=== PATIENT | female | born 1970 | race Caucasian/White ===

== ENCOUNTER → 2018-04-23 14:49 | Outpatient (CLI) | payer OTHER, SELFPAY ==
[2018-04-26 12:15] LABS: HPV Reflexed? NOT INDICATED
== END ==
PROVIDERS: Visit Provider Obstetrics & Gynecology
DX: R87.610 Atypical squamous cells of undetermined significance on cytologic smear of cervix (ASC-US) (principal)
CPT/HCPCS: 88175; G0145

== ENCOUNTER → 2019-09-29 09:02 | Outpatient (CLI) | payer OTHER, SELFPAY ==
[2019-09-29 12:48] LABS: Cholesterol 157 mg/dL (200); High Density Lipoprotein 47 mg/dL; Triglycerides 119 mg/dL; Very Low Density Lipoprotein 24 mg/dL (5-40)
== END ==
PROVIDERS: Visit Provider Obstetrics & Gynecology
DX: Z13.1 Encounter for screening for diabetes mellitus (principal); Z13.220 Encounter for screening for lipoid disorders
CPT/HCPCS: 36415; 80061; 83036

== ENCOUNTER → 2022-03-28 | Outpatient (CLI) | payer OTHER, SELFPAY ==
[2022-04-04 18:20] LABS: HPV APTIMA, High Risk Negative (Negative)
== END | disposition home or self-care (01) ==
PROVIDERS: Visit Provider Registered Nurse
DX: Z12.4 Encounter for screening for malignant neoplasm of cervix (principal)
CPT/HCPCS: 87624; 88175; G0145

== ENCOUNTER → 2022-05-22 | Outpatient (CLI) | payer OTHER, SELFPAY ==
--- NOTE | 2022-05-22 15:32 | BI_ITS ---
MAMMOGRAPHY - BILATERAL SCREENING REASON FOR EXAM: Female, 51 years old. Routine annual screening examination. PERTINENT HISTORY: Non-contributory. TECHNIQUE: Digital bilateral breast martita (3D mammographic acquisition) in the CC and MLO projections. 2-D mediolateral oblique (MLO) and craniocaudad (CC) views of both breasts were obtained. CAD: Full Field Digital Mammography with Computer Added Detection was performed. COMPARISON: Comparison is made with prior outside examination dated March 01, 2021. FINDINGS: Breast Composition: The breasts are extremely dense, which lowers the sensitivity of mammography. There are no dominant masses or suspicious calcifications. Stable scattered bilateral calcifications. No focal cluster is seen. No other significant abnormalities are identified. There has been no significant change since the prior study. BI/SCRN MAMM (CAD)W/MARTITA BILAT IMPRESSION: Stable bilateral screening mammogram. Yearly follow-up mammogram recommended. (A) ASSESSMENT CATEGORY: BIR ADS Category 2: Benign. A letter regarding these results will be sent to the patient by the facility within 30 days. Approximately 10% of breast cancers are not detected by mammography. A normal mammogram should not delay biopsy of a clinically suspicious abnormality. [id number] Electronically Signed: Rishabh Valero MD at 8:07 EDT ,
== END | disposition home or self-care (01) ==
LOC: OPBI 15:29
PROVIDERS: Visit Provider Registered Nurse
DX: Z12.31 Encounter for screening mammogram for malignant neoplasm of breast (principal)
CPT/HCPCS: 77063; 77067

== ENCOUNTER → 2023-06-18 | Outpatient (CLI) | payer OTHER, SELFPAY ==
--- NOTE | 2023-06-18 16:00 | BI_ITS ---
MAMMOGRAPHY - BILATERAL SCREENING REASON FOR EXAM: Female, 52 years old. Routine annual screening examination. PERTINENT HISTORY: Non-contributory. TECHNIQUE: Digital bilateral breast martita (3D mammographic acquisition) in the CC and MLO projections. 2-D mediolateral oblique (MLO) and craniocaudad (CC) views of both breasts were obtained. CAD: Full Field Digital Mammography with Computer Added Detection was performed. COMPARISON: Comparison is made with prior study dated May 22, 2022. FINDINGS: Breast Composition: The breasts are extremely dense, which lowers the sensitivity of mammography. There are no dominant masses or suspicious calcifications. Stable benign-appearing bilateral scattered calcifications. No other significant abnormalities are identified. There has been no significant change since the prior study. BI/SCRN MAMM (CAD)W/MARTITA BILAT IMPRESSION: Stable bilateral screening mammogram. Yearly follow-up mammogram recommended. (A) ASSESSMENT CATEGORY: BIRADS Category 2: Benign. A letter regarding these results will be sent to the patient by the facility within 30 days. Approximately 10% of breast cancers are not detected by mammography. A normal mammogram should not delay biopsy of a clinically suspicious abnormality. [id number] Electronically Signed: Rishabh Valero MD at 8:33 EDT ,
== END | disposition home or self-care (01) ==
LOC: OPBI 16:00
PROVIDERS: Referring Provider Registered Nurse; Visit Provider Registered Nurse
DX: Z12.31 Encounter for screening mammogram for malignant neoplasm of breast (principal)
CPT/HCPCS: 77063; 77067

== ENCOUNTER → 2024-06-18 | Outpatient (CLI) | payer OTHER, SELFPAY ==
--- NOTE | 2024-06-18 16:15 | BI_ITS ---
EXAM: SCRN MAMM (CAD)W/MARTITA BILAT DATE: 06/18/2024 CLINICAL HISTORY: F, Age 53 y/o , SCREEN FOR BREAST CANCER BREAST CANCER RISK ASSESSMENT: Has not been calculated. TECHNIQUE: Bilateral screening digital breast tomosynthesis with 2D and 3D images. Computer aided detection. COMPARISON: Prior exam(s) dated 06/18/2023 and 05/22/2022. FINDINGS: TISSUE DENSITY: The breast tissue is heterogenously dense, which may obscure small masses. Bilateral Breast Mammographic Findings: There are no suspicious masses, suspicious clustered microcalcifications, architectural distortion or secondary signs of malignancy identified in either breast. There has been no significant change since the prior study. Benign-appearing round microcalcifications are seen in both breasts. BI/SCRN MAMM (CAD)W/MARTITA BILAT IMPRESSION: OVERALL FINAL ASSESSMENT: BIRADS 2 BENIGN FINDING RECOMMENDATION: Routine annual follow-up in 1 Year A letter with findings and recommendations will be mailed to the patient. Reading Location: [id number]
== END | disposition home or self-care (01) ==
LOC: OPBI 16:15
PROVIDERS: Referring Provider Nurse Practitioner Family; Visit Provider Nurse Practitioner Family
DX: Z12.31 Encounter for screening mammogram for malignant neoplasm of breast (principal)
CPT/HCPCS: 77063; 77067

== ENCOUNTER 2024-10-03 08:31 | Day surgery (SDC) | payer OTHER, SELFPAY ==
[2024-10-03] VITALS (7 sets, daily range): BP systolic 99–123; BP diastolic 65–85; PULSE 60–75; RESP 16–18; TEMP 36.1–36.4; O2SAT 98–100; BMI 26.7
--- NOTE | 2024-10-03 08:55 | PRE.ANES_ITS ---
ASA Classification* ASA Classification ASA Classification: 2 Assessment & Plan Anesthesia* Anesthesia Assessment Anesthesia Assessment: Discussed sedation and/or anesthesia options, risks, benefits, and alternatives with patient/parents/legal guardian/POA. Questions invited. The patient/parents/legal guardian/POA seems to understand and agrees to proceed with anesthesia plan. Reviewed the physical assessment, medical history, allergy history and patient home medications list prior to surgery/procedure/anesthetic and documented any changes. Performed airway and anesthesia risk assessments. 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 When Was Last Pacemaker Check QUESTION #4 FULL TEXT: You/Your Family Experience fever (hyperthermia) with Anesthesia Last Oral Intake Last Oral intake: Last Oral Intake NPO since Meds taken in AM with sips of water? Meds patient instructed to take am of surgery PONV PONV - photostat operator helper: PONV - photostat operator helper Female Yes 10/02/24 10:31 HX of Motion Sickness Yes 10/02/24 10:31 HX of N/V After Surgery No 10/02/24 10:31 Non-Smoker Yes 10/02/24 10:31 Duration of Surgery greater No 10/02/24 10:31 than 60 minutes Number of Risk Factors 3 10/02/24 10:31 PONV Score Moderate Risk 10/02/24 10:31 Height & Weight Height & Weight: Anesthesia: Height & Weight Height 5 ft 5 in 06/17/24 14:45 Respiratory Assessment Respiratory Assessment - photostat operator helper: Respiratory Tract Infection Hx - photostat operator helper Hx Respiratory Tract Infection No 10/02/24 10:31 STOP Sleep Apnea STOP Sleep Apnea - photostat operator helper: STOP Sleep Apnea - photostat operator helper Hx Hypertension No 10/02/24 10:31 Hx Sleep Apnea No 10/02/24 10:31 CPAP BIPAP Do you snore loudly (louder No 10/02/24 10:31 than talking or can be heard Do you often feel tired/ No 10/02/24 10:31 fatigued/ sleepy during daytime? Has anyone observed you stop No 10/02/24 10:31 breathing during sleep? STOP Results Negative 10/02/24 10:31 QUESTION #5 FULL TEXT : Do you snore loudly (louder than talking or can be heard through closed doors)? Tobacco Use History Tobacco Use History - photostat operator helper: Tobacco Use History - photostat operator helper Tobacco Use Smoking Status Never smoker 10/02/24 10:31 Hx Tobacco Use No 10/02/24 10:31 Years Smoking Packs Smoked per Day Smoking Cessation Date was within the last 15 years Hx Smoking Cessation Date Hx Smoking Cessation Counseling Hematologic Medial History Hematologic Hx - photostat operator helper: Hematologic Medical Hx - documentation lead Hx of Blood Transfusion No 10/02/24 10:31 Hx of Transfusion in last 3 No 10/02/24 10:31 Months Date of Last Transfusion (if within last 3 months) Ever experience any problems No 10/02/24 10:31 with transfusion(s)? Specify any problems Hx of Preganancy in last 3 No 10/02/24 10:31 Months Nurse Filling Out Transfusion DSCHRIBER 10/02/24 10:31 & Questions: Date: 10/02/24 10/02/24 10:31 Time: 10:32 10/02/24 10:31 Patient unable to answer at this time (ie. confused, unrespo /Reproduction History /Reproductive History - photostat operator helper: /Reproductive Hx- photostat operator helper Hx Now No 10/02/24 10:31 Gestational Age (in weeks): EDC: Hx Hx Para Hx Section SAB No 10/02/24 10:31 Active Medications Active Medications: Current Medications Generic Name Dose Route Start Last Admin Trade Name Freq PRN Reason Stop Dose Admin Lactated Ringer's 1,000 mls @ 15 mls/hr 10/03/24 08:45 IV .Q48H MERRY PFSH Medical History Wears glasses Anxiety Restless legs Migraine headache Non-smoker Home Medications ?Medication ?Instructions ?Recorded ?Last Taken ?Type citalopram 10 mg tablet 10 mg PO DAILY 03/28/2209/19 History Allergy/AdvReac Type Severity Reaction Status Date / Time No Known Allergies Allergy Verified 10/03/24 08:56 Family History Father Diabetes Heart disease Mother Heart disease Grandmother Ovarian cancer Paternal Surgical History Hx of appendectomy History of delivery Social History adopted: No household members: spouse and children number of children: 1 current occupational status: employed current occupation: [employer] current occupational exposures/hazards: No pets and animals: Yes pets and animals: cat(s) and dog(s) history of recent travel: No sexually active: Yes Smoking Status: Never smoker alcohol intake: never substance use type: does not use well-balanced diet: daily or most days caffeine: Yes Type: coffee Number of servings: 2 during the past year weight has: remained stable what type of physical activity do you participate in: walking frequency: daily duration: 45-60 minutes/day simi/zoroastrianism: None seatbelt use: always do you feel safe at home: Yes additional social history: Bhavin Review of Systems (Anesthesia) ROS Narrative System reviewed and no additional complaints, except as documented.
[2024-10-03 09:00] LABS: Internal QC Validated? YES +Cl - CLEAR BKGD; Pregnancy, Urine Negative Negative; Record Kit Lot#,Urine Preg 962302
--- OUTSIDE RECORDS SUMMARY | 2024-10-03 09:00 | XMS RPT_ITS | CCD ---
Author Organization [facility] Care Team Providers Care Floor Specialist Name Role Phone MONIKA MEDINA Primary Care Physician JAN Dozier Attending Provider Brissa Beulah A Primary Care Provider Unavailabl e Carolson, Beulah A Referring Provider Unavailable JAN Dozier Attending Provider [phone] MONIKA MEDINA Attending Unavail able MONIKA MEDINA Primary Care Unavail able Gail Altamirano Attending Unavailable Lorson, Beulah A Referring Unavailable Lorson, Beulah A Primary Care Unavailable Orlando Zimmerman Attending Unavailable Monika Moctezuma NP Primary Care Unavailable Orlando Zimmerman Referring Unavailable Gail Altamirano Referring Unavailable Gail Altamirano Attending Unavailable Brissa Beulah A Primary Care Unavailable Medications Current Medications Medication Drug Class(es) Dates Sig (Normalized) Sig (Original) acetaminophen 325 mg oral capsule (2 sources) Start: 04-26-2020 take 1 capsule by mouth every four hours as needed for pain Tylenol 325 mg oral capsule Dose : 650 mg =, Oral, q4h, PRN as needed for pain, 0 Refill(s) Start Date: 04/26/20 Status: Ordered cephalexin 500 mg oral capsule (1 source) Cephalosporin Antibacterial Start: 06-03-2021 End: 06-10-2021 cephalexin 500 mg oral capsule Dose : 500 mg = 1 cap(s), Oral, QID, X 7 day(s), # 28 cap(s), 0 Refill(s), 06/10/21 13:36:00 EDT, Crush injury to finger, 70 Start Date: 06/03/21 Stop Date: 06/10/21 Status: Ordered citalopram 10 mg oral tablet (4 sources) Serotonin Reuptake Inhibitor Start: 03-28-2022 take 10 mg by mouth once daily Citalopram Active 10 MG PO DAILY March 28, 2022 1:00am Start: 05-27-2020 End: 05-22-2021 citalopram 10 mg oral tablet Dose : 10 mg = 1 tab(s), Oral, qDay, # 90 tab(s), 3 Refill(s), Pharmacy: [id number], 164, cm, 05/27/20 15:25:00 EDT, Height, kg, 05/27/20 15:25:00 EDT, Dosing Weight Start Date: 05/27/20 Stop Date: 05/22/21 Status: Ordered Completed/Discontinued Medications Medication Drug Class(es) Dates Sig (Normalized) Sig (Original) acetaminophen 325 mg / HYDROcodone bitartrate 5 mg oral tablet (2 sources) Opioid Agonist Start: 06-03-2021 End: 06-06-2021 take 1 tablet by mouth every six hours Sublette 325- 5 mg oral tablet Dose = 1 tab(s), Oral, q6h, # 12 tab(s), 0 Refill(s), Crush injury to finger, 70 Start Date: 06/03/21 Stop Date: 06/06/21 Status: Ordered Problems Active Problems Problem Classification Problem Date Documented Da te Episodic/Chronic Anxiety disorders (2 sources) Generalized anxiety disorder 11-07-2018 Chronic Crushing injury or internal injury (1 source) Crushing injury of finger; Translations: [Crushing injury of unspecified finger(s), initial encounter] Onset: 06-03-2021 Episodic Past or Other Problems Problem Classification Problem Date Documented Da te Episodic/Chronic Other screening for suspected conditions (not mental disorders or infectious disease) (1 source) Encounter for screening mammogram for malignant neoplasm of breast; Translations: [Encounter for screening mammogram for malignant neoplasm of breast] Onset: 06-24-2024 Episodic Results Test Name Value Interpretation Reference Range Facility SCRN MAMM (CAD)W/MARTITA lewis 06-18-2024 SCRN MAMM (CAD)W/MARTITA [facility] Services [address] [place] [id number] SCRN MAMM (CAD)W/MARTITA BILAT MR#: [id number] Acct: [id number] Name: MARY FISHMAN Rep #: [id number] : 1970 F 53 From: Kaila Jose PCP: Beulah Moctezuma Status: REG CLI Study: SCRN MAMM (CAD)W/MARTITA BILAT Date of Exam: 05/22 Exam# [id number] Ordering Dr: Gail Altamirano EXAM: SCRN MAMM (CAD)W/MARTITA BILAT DATE: 06/18/2024 CLINICAL HISTORY: F, Age 53 y/o , SCREEN FOR BREAST CANCER BREAST CANCER RISK ASSESSMENT: Has not been calculated. TECHNIQUE: Bilateral screening digital breast tomosynthesis with 2D and 3D images. Computer aided detection. COMPARISON: Prior exam(s) dated 06/18/2023 and 05/22/2022. FINDINGS: TISSUE DENSITY: The breast tissue is heterogenously dense, which may obscure small masses. Bilateral Breast Mammographic Findings: There are no suspicious masses, suspicious clustered microcalcifications, architectural distortion or secondary signs of malignancy identified in either breast. There has been no significant change since the prior study. Benign-appearing round microcalcifications are seen in both breasts. BI/SCRN MAMM (CAD)W/MARTITA BILAT IMPRESSION: OVERALL FINAL ASSESSMENT: BIRADS 2 BENIGN FINDING RECOMMENDATION: Routine annual follow-up in 1 Year A letter with findings and recommendations will be mailed to the patient. Reading Location: [id number] CC: GEO Altamirano; Beulah Moctezuma Eyelet Punch Operator: Signed Normal [facility] School Leader Office Visit Reporton 06-17-2024 School Leader Office Visit Report [facility] [address], [address] [place] [address] OFFICE VISIT Date of Service: 06/17/24 MR#: [id number] Acct: [id number] Name: MARY FISHMAN Rep #: [id number] : 1970 Provider: GEO Parker Age/Sex: 53/F [place] [facility] [place]: Signed Intake Vital Signs 06/06/23 16:19 06/17/24 14:41 06/17/24 14:45 Height 5 ft 5 in 5 ft 5 in 5 ft 5 in Weight: 156 lb BMI 25.9 BP 153/80 H 145/89 H 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: No Is patient in pain?: No Allergies No Known Allergies Allergy (Verified 06/17/24 14:41) Medications ???Medication ???Instructions ???Recorded ???Confirmed ???Type citalopram 10 mg tablet 10 mg PO DAILY 03/28/22 06/17/24 H istory Post menopausal: No Patient : No : No PFSH Surgical History Hx of appendectomy History of delivery Family History Father Diabetes Heart disease Mother Heart disease Grandmother Ovarian cancer Paternal Social History adopted: No household members: spouse and children number of children: 1 current occupational status: employed 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 current occupational exposures/hazards: No pets and animals: Yes pets and animals: cat(s) and dog(s) history of recent travel: No sexually active: Yes Smoking Status: Never smoker alcohol intake: never substance use type: does not use well-balanced diet: daily or most days caffeine: Yes Type: coffee Number of servings: 2 during the past year weight has: remained stable what type of physical activity do you participate in: walking frequency: daily duration: 45-60 minutes/day simi/jehovah's witness: None seatbelt use: always do you feel safe at home: Yes additional social history: Bhavin History 3 Elective abortions Hx Para 2 Spontaneous abortions Hx # Term Pregnancies Ectopic pregnancies Hx # Pregnancies Multiple births # of living children Past Pregnancies Del. 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 She reports no issues or concerns today. Has not had colonoscopy yet. She is still having regular menses. Will skip every now in then. Last PAP: 2022; normal. hpv neg. History of abnormal PAP: ASCUS 2017. Last mammogram: 2023; normal. History of abnormal mammogram: no. Colon cancer screening: None--needs. Other preventative health care screenings: [facility] Moctezuma; PCP. Female Reproductive History Last Menstrual Period: 05/27/24 Cycle Length: 21-35 Questions: metorrhagia: No, sexually active: Yes, dyspareunia: No and PCB: No ROS Const Constitutional: Denies chills, fatigue, fever(s), headache(s) or weight loss Eyes Eyes: Denies change in vision ENT ENT: Denies dizziness Cardio Card: Denies chest pain at rest or palpitations Resp Resp: Denies cough GI GI: Denies abdominal pain, constipation or nausea : Denies difficulty voiding, dysuria, hematuria, nipple discharge, pelvic pain, prolapse symptoms, urinary incontinence, vaginal discharge, vaginal dryness, vaginal odor or vaginal pruritus Skin Skin/Breast: Denies alopecia, rash, breast mass, breast pain, breast skin changes or nipple discharge Neuro Neuro: Denies dizziness Psych Psych: Denies anxiety or depression Endo Endo: Denies cold intolerance, excessive sweating or heat intolerance Exam Const General: cooperative, healthy appearing, comfortable, no acute distress, well groomed and well hydrated Nutritional Appearance: well nourished Orientation: alert, awake and oriented x3 HENMT Head: normal to inspection and normocephalic Ears: hearing grossly normal bilaterally and external ears normal Nose: external nose normal Face and sinus: normal facial exam Eyes General: appearance normal, both eyes and all related structures Neck Neck: normal visual inspection, full ROM and no lymphadenopathy Thyroid: thyroid normal Chest Chest palpation inspection: normal inspection of the chest Breast inspection: normal inspection of the breasts and normal inspection of the axillae Breast palpation: normal palpation of the breasts, normal palpation of the axillae and no axillary lymphadenopathy Resp Effort Inspection: normal respiratory effort, able to speak in complete sentences and symmetric chest m (more content not included)... Normal [facility] .GFRon 10-06-2023 GFR 95 ml/min/1.73sqm Normal [facility] ([place]) Comment on above: Result Comment: GFR Population mean for , Non- Americans Ages 20-29 = 116 mL/min/1.73 sq.m. Ages 30-39 = 107 mL/min/1.73 sq.m. Ages 40-49 = 99 mL/min/1.73 sq.m. Ages 50-59 = 93 mL/min/1.73 sq.m. Ages 60-69 = 85 mL/min/1.73 sq.m. Ages 70+ = 75 mL/min/1.73 sq.m. Chronic Kidney Disease: Less than 60 mL/min/1.73 square meters End Stage Renal Disease: Less than 15 mL/min/1.73 square meters Performed By: #### L IPID, CMP, GFR #### [address] [address] GFR Non- 78 ml/min/1.73sqm Normal [facility] ([place]) Comment on above: Result Comment: GFR Population mean for , Non- Americans Ages 20-29 = 116 mL/min/1.73 sq.m. Ages 30-39 = 107 mL/min/1.73 sq.m. Ages 40-49 = 99 mL/min/1.73 sq.m. Ages 50-59 = 93 mL/min/1.73 sq.m. Ages 60-69 = 85 mL/min/1.73 sq.m. Ages 70+ = 75 mL/min/1.73 sq.m. Chronic Kidney Disease: Less than 60 mL/min/1.73 square meters End Stage Renal Disease: Less than 15 mL/min/1.73 square meters Performed By: #### L IPID, CMP, GFR #### [address] [address] CMPon 10-06-2023 Albumin Level 3.7 G/dL Normal 3.5-5.0 [facility] ([place]) Comment on above: Performed By: #### L IPID, CMP, GFR #### [address] [address] Albumin/Globulin [Mass ratio] 1.1 {ratio} Normal 1.1-2.5 [facility] ([place]) Comment on above: Performed By: #### L IPID, CMP, GFR #### [address] [address] ALP [Catalytic activity/Vol] 59 U/L Normal 40-135 [facility] ([place]) Comment on above: Performed By: #### L IPID, CMP, GFR #### [address] [address] ALT [Catalytic activity/Vol] 24 U/L Normal 14-59 [facility] ([place]) Comment on above: Performed By: #### L IPID, CMP, GFR #### [address] [address] AST [Catalytic activity/Vol] 6 U/L Low 10-40 [facility] ([place]) Comment on above: Performed By: #### L IPID, CMP, GFR #### [address] [address] Bili Total 0.5 mg/dL Normal 0.2-1.0 [facility] ([place]) Comment on above: Result Comment: Use of this assay is not recommended for patients undergoing treatment with eltrombopag due to the potential for falsely elevated results. Performed By: #### L IPID, CMP, GFR #### [address] [address] BUN/Creatinine Ratio 13 ratio Normal 7-27 [facility] ([place]) Comment on above: Performed By: #### L IPID, CMP, GFR #### [address] [address] Calcium [Mass/Vol] 8.8 mg/dL Normal 8.4-10.2 [facility] ([place]) Comment on above: Performed By: #### L IPID, CMP, GFR #### [address] [address] Chloride [Moles/Vol] 106 mmol/L Normal 98-107 [facility] ([place]) Comment on above: Performed By: #### L IPID, CMP, GFR #### [address] [address] CO2 [Moles/Vol] 31 mmol/L High 22-29 [facility] ([place]) Comment on above: Performed By: #### L IPID, CMP, GFR #### [address] [address] Creatinine [Mass/Vol] 0.77 mg/dL Normal 0.55-1.02 [facility] ([place]) Comment on above: Performed By: #### L IPID, CMP, GFR #### [address] [address] Electrolyte Balance 6.0 mEq/L Normal 4.0-15.0 [facility] ([place]) Comment on above: Performed By: #### L IPID, CMP, GFR #### [address] [address] Globulin 3.4 G/dL Normal [facility] ([place]) Comment on above: Performed By: #### L IPID, CMP, GFR #### [address] [address] Glucose [Mass/Vol] 97 mg/dL Normal 70-105 [facility] ([place]) Comment on above: Performed By: #### L IPID, CMP, GFR #### [address] [address] Potassium [Moles/Vol] 4.4 mmol/L Normal 3.5-5.1 [facility] ([place]) Comment on above: Performed By: #### L IPID, CMP, GFR #### [address] [address] Sodium [Moles/Vol] 143 mmol/L Normal 136-145 [facility] ([place]) Comment on above: Performed By: #### L IPID, CMP, GFR #### [address] [address] Total Protein 7.1 G/dL Normal 6.4-8.2 [facility] ([place]) Comment on above: Performed By: #### L IPID, CMP, GFR #### [address] [address] Urea nitrogen [Mass/Vol] 10 mg/dL Normal 7-18 [facility] ([place]) Comment on above: Performed By: #### L IPID, CMP, GFR #### [address] [address] LIPIDon 10-06-2023 Cholesterol [Mass/Vol] 206 mg/dL High 0-200 [facility] ([place]) Comment on above: Result Comment: Chol esterol Reference Interval: Less than 200 Desirable 200-239 Borderline high risk 240 and above High risk Performed By: #### L IPID, CMP, GFR #### [address] [address] Cholesterol in HDL [Mass/Vol] 52 mg/dL Normal 40-60 [facility] ([place]) Comment on above: Performed By: #### L IPID, CMP, GFR #### [address] [address] Cholesterol in LDL [Mass/Vol] 135 mg/dL High 0-130 [facility] ([place]) Comment on above: Performed By: #### L IPID, CMP, GFR #### [address] [address] Triglyceride [Mass/Vol] 95 mg/dL Normal 0-150 [facility] ([place]) Comment on above: Result Comment: Trig lyceride Reference Interval: Less than 150 Normal 150-199 Borderline high risk 200-499 High risk 500 or higher Very high risk Performed By: #### L IPID, CMP, GFR #### [address] [address] Cervical or vagninal specime n microscopic examination by cytology stain (reported asOrdered By: Sinai Dozier on 03-28-2022 Cytology report Cyto stain Doc (Cvx/Vag) Comment . [facility] Comment on above: The Pap smear is a s creening test designed to aid in thedetection of premalignant and malignant conditions of theuterine cervix. It is not a diagnostic procedure andshould not be used as the sole means of detecting cervicalcancer. Both false-positive and false-negative reports dooccur. Detection in cervical specim en of any of human papilloma virus (HPV) 16, 18, 31, 33,Ordered By: Sinai Dozier on 03-28-2022 HPV 16+18+31+33+35+39+45+5 1+52+56+58+59+66+68 DNA Probe+sig amp Ql (Cvx) Negative Negative [facility] Comment on above: This nucleic acid am plification test detects fourteen high- risk HPV types (16,18,31,33,35,39,45,51,52,56,58,59,66,68)without differentiation. Laboratory - CytologyOrdered By: Sinai Dozier on 03-28-2022 Landscaping Specialist Cyto stain Nom (Cvx/Vag) [ID] Comment . [facility] Comment on above: Cheri Jorgensen, Cytote chnologist (ASCP) Laboratory - Miscellaneous t estsOrdered By: Sinai Dozier on 03-28-2022 Service comment (Unsp spec) [Interp] Comment . [facility] Comment on above: This liquid based Th inPrep(R) pap test was screened withthe use of an image guided system. Service comment (Unsp spec) [Interp] . . [facility] Liquid-based cerv Pap + CT/G C by SANDI w reflex to high-risk HPV for ASCUSOrdered By: Sinai Dozier on 03-28-2022 Cytology report Cyto stain.thin prep Doc (Cvx/Vag) Comment . [facility] Comment on above: Criteria not met, HP V Genotype not performed.Performed at: - [address] [id number] Director: Clare Perez MD, Phone: [phone] at: =[facility] [id number] Director: Clare Perez MD, Phone: [phone] No Panel InformationOrdered By: Sinai Dozier on 03-28-2022 Pathology report final diagnosis Narrative Comment . [facility] Comment on above: NEGATIVE FOR INTRAEP ITHELIAL LESION OR MALIGNANCY. CNOVon 08-22-2018 CNOV Office Visit (WSTR ) MARY FISHMAN ([id number]) 1970 F Date Time Provider Department 08/22/18 9:15 AM CHIOMA DONOVAN [facility] During your visit today, we recorded the following information about you: Temperature Pulse Respiration Blood pressure 97.9 degrees 75/minute 16/minute 132/74 Weight 66.2 kg Chioma Donovan APRN.CNP 08/22/2018 9:30 AM Signed ASSESSMENT/PLAN: 1. Low back strain, initial encounter - ICD9: 847.2, ICD10: S39.012A Mechanical low back pain - Warm moist heat for 20 min three times a day - Medrol dose pack - Muscle relaxant- see orders - Patient given instructions use of medications as ordered, intermittent rest and back care exercise program - METHYLPREDNISOLONE 4 MG TABLETS IN A DOSE PACK - CYCLOBENZAPRINE 10 MG TABLET Report immediately to ER for foot drop, bowel or bladder loss, numbness or tingling of legs/feet or any new or worsening concerns if unable to get into PMD Chioma Donovan APRN.CNP 08/22/2018 10:06 AM Signed Subjective The history is provided by the patient. No sewing machine bobbin winder was used. HPI Mary Fsihman is a 47 year old female who presents today for CC of lower back pain, with radiation into right leg. This started over the past week and is not going away. She has been doing a lot of yard/farm work and doesn't remember a specific incidence as to what caused it. She denies any foot drag, difficulty with bowel or bladder function. She has used ibuprofen without relief. BP 132/74 Pulse 75 Temp 36.6 ?C (97.9 ?F) (Tympanic) Resp 16 Wt 66.2 kg (146 lb) SpO2 96% Social History Socioeconomic History Marital status: Spouse name: Not on file Number of children: Not on file Years of education: Not on file Highest education level: Not on file Social Needs Financial resource strain: Not on file Food insecurity - worry: Not on file Food insecurity - inability: Not on file Transportation needs - medical: Not on file Transportation needs - non-medical: Not on file Occupational History Not on file Tobacco Use Smoking status: Never Smoker Smokeless tobacco: Never Used Substance and Sexual Activity Alcohol use: No Drug use: No Sexual activity: Yes Partners: Male control/protection: Vasectomy Other Topics Concerns: Not on file Social History Narrative Not on file PAST MEDICAL HISTORY Diagnosis Date - Depressive disorder, not elsewhere classified I have confirmed and edited as necessary, the [facility] Review of Systems Constitutional: Negative for chills and fever. Musculoskeletal: Positive for back pain. Negative for falls and myalgias. Skin: Negative for rash. All other systems reviewed and are negative. Objective Physical Exam Constitutional: She is oriented to person, place, and time and well-developed, well-nourished, and in no distress. HENT: Head: Normocephalic. Cardiovascular: Pulses: Popliteal pulses are 2+ on the right side, and 2+ on the left side. Dorsalis pedis pulses are 2+ on the right side, and 2+ on the left side. Posterior tibial pulses are 2+ on the right side, and 2+ on the left side. Musculoskeletal: Lumbar back: She exhibits tenderness, pain and spasm. She exhibits normal range of motion, no bony tenderness, no swelling, no edema, no deformity, no laceration and normal pulse. Back: Patient was able to change positions readily without assistance, hesitancy, delay or with overt signs of discomfort. Neurovascular status is intact to bilateral lower extremities. Patellar reflexes are +2 bilaterally. Leg strength 5/5. Pedal pulses are palpable and strong. Normal temp. Normal sensation. Bilateral leg lifts are negative for radiculopathy. Able to ambulate without evidence of a foot drop or ataxic gait. Able to ambulate on toes and heels. Normal flexion, dorsiflexion, abduction and adduction. Denies bowel or bladder dysfunction, saddle anesthesia, distal paresthesias or weakness in the lower extremities. Neurological: She is alert and oriented to person, place, and time. She has normal sensation, normal strength and normal reflexes. Skin: Skin is warm and dry. Psychiatric: Affect normal. Nursing note and vitals reviewed. ASSESSMENT/PLAN: 1. Low back strain, initial encounter - ICD9: 847.2, ICD10: S39.012A Mechanical low back pain - Warm moist heat for 20 min three times a day - Medrol dose pack - Muscle relaxant- see orders - Patient given instructions use of medications as ordered, intermittent rest and back care exercise program - METHYLPREDNISOLONE 4 MG TABLETS IN A DOSE PACK - CYCLOBENZAPRINE 10 MG TABLET Report immediately to ER for foot drop, bowel or bladder loss, numbness or tingling of legs/feet or any new or worsening concerns if unable to get into PMD Diagnosis and treatment plan were discussed and questions were answered to the patient's satisfaction. Pt acknowledged understanding of concepts and follow up plan. Specific signs and symptoms that would indicate the need for higher level of care were discussed in detail warranting prompt ER evaluation. Chioma Donovan APRN.AUTO PARTS HANDLER Referring Provider: SELF [200] Allergies As of Date: 08/22/2018 (No Known Allergies) Date Reviewed: 08/22/2018 Reviewed by: Chioma Donovan - Fully Assessed Reason for Visit: Back Pain [12] Cmt: low back pain going into (right) leg causing muscle spasms x 4 days Primary Visit Diagnosis:Low back strain, initial encounter [S39.012A] Order(s):cyclobenzapri ne (FLEXERIL) 10 mg tabletTake 1/2 to 1 tablets at hs prnDisp: 10 tabletRfl: 0 Prescriptions as of 08/22/2018 Sig: CELEXA ORAL Take by mouth. CYCLOBENZAPRINE 10 MG TABLET Take 1/2 to 1 tablets at hs p* PAXIL CR 12.5 MG TABLET,EXTEN* Problem List As Of Date: 08/22/2018 (None) Other instructions from your clinician: ASSESSMENT/PLAN: 1. Low back strain, initial encounter - ICD9: 847.2, ICD10: S39.012A Mechanical low back pain - Warm moist heat for 20 min three times a day - Medrol dose pack - Muscle relaxant- see orders - Patient given instructions use of medications as ordered, intermittent rest and back care exercise program - METHYLPREDNISOLONE 4 MG TABLETS IN A DOSE PACK - CYCLOBENZAPRINE 10 MG TABLET Report immediately to ER for foot drop, bowel or bladder loss, numbness or tingling of legs/feet or any new or worsening concerns if unable to get into PMD Prescriptions ordered this encounter Disp Refills Start End METHYLPREDNISOLONE 4 MG TABLETS IN A* 1 Pa* 0 08/22/2018 08/22/2018 Sig: Follow dosing instructions, take with food. Disc: Course of therapy completed CYCLOBENZAPRINE 10 MG TABLET 10 t* 0 08/22/2018 Sig: Take 1/2 to 1 tablets at hs prn Medications Discontinued During This Encounter methylPREDNISolone (MEDROL, EARLENE,) 4 * 1 Pa* 0 08/22/2018 08/22/2018 Sig: Follow dosing instructions, take with food. Disc: Course of therapy completed Encounter Status:Closed by CHIOMA DONOVAN CNP on 08/22/18 [facility] PROGRESSon 08-22-2018 PROGRESS HNO ID: [id number] Author: Chioma Donovan Service: ? Author Type: Nurse Practitioner Type: Progress Notes Filed: 08/22/2018 10:06 AM Note Text: Subjective The history is provided by the patient. No sewing machine bobbin winder was used. HPI Mary Fishman is a 47 year old female who presents today for CC of lower back pain, with radiation into right leg. This started over the past week and is not going away. She has been doing a lot of yard/farm work and doesn't remember a specific incidence as to what caused it. She denies any foot drag, difficulty with bowel or bladder function. She has used ibuprofen without relief. BP 132/74 Pulse 75 Temp 36.6 ?C (97.9 ?F) (Tympanic) Resp 16 Wt 66.2 kg (146 lb) SpO2 96% Social History Socioeconomic History Marital status: Spouse name: Not on file Number of children: Not on file Years of education: Not on file Highest education level: Not on file Social Needs Financial resource strain: Not on file Food insecurity - worry: Not on file Food insecurity - inability: Not on file Transportation needs - medical: Not on file Transportation needs - non-medical: Not on file Occupational History Not on file Tobacco Use Smoking status: Never Smoker Smokeless tobacco: Never Used Substance and Sexual Activity Alcohol use: No Drug use: No Sexual activity: Yes Partners: Male control/protection: Vasectomy Other Topics Concerns: Not on file Social History Narrative Not on file PAST MEDICAL HISTORY Diagnosis Date - Depressive disorder, not elsewhere classified I have confirmed and edited as necessary, the [facility] Review of Systems Constitutional: Negative for chills and fever. Musculoskeletal: Positive for back pain. Negative for falls and myalgias. Skin: Negative for rash. All other systems reviewed and are negative. Objective Physical Exam Constitutional: She is oriented to person, place, and time and well-developed, well-nourished, and in no distress. HENT: Head: Normocephalic. Cardiovascular: Pulses: Popliteal pulses are 2+ on the right side, and 2+ on the left side. Dorsalis pedis pulses are 2+ on the right side, and 2+ on the left side. Posterior tibial pulses are 2+ on the right side, and 2+ on the left side. Musculoskeletal: Lumbar back: She exhibits tenderness, pain and spasm. She exhibits normal range of motion, no bony tenderness, no swelling, no edema, no deformity, no laceration and normal pulse. Back: Patient was able to change positions readily without assistance, hesitancy, delay or with overt signs of discomfort. Neurovascular status is intact to bilateral lower extremities. Patellar reflexes are +2 bilaterally. Leg strength 5/5. Pedal pulses are palpable and strong. Normal temp. Normal sensation. Bilateral leg lifts are negative for radiculopathy. Able to ambulate without evidence of a foot drop or ataxic gait. Able to ambulate on toes and heels. Normal flexion, dorsiflexion, abduction and adduction. Denies bowel or bladder dysfunction, saddle anesthesia, distal paresthesias or weakness in the lower extremities. Neurological: She is alert and oriented to person, place, and time. She has normal sensation, normal strength and normal reflexes. Skin: Skin is warm and dry. Psychiatric: Affect normal. Nursing note and vitals reviewed. ASSESSMENT/PLAN: 1. Low back strain, initial encounter - ICD9: 847.2, ICD10: S39.012A Mechanical low back pain - Warm moist heat for 20 min three times a day - Medrol dose pack - Muscle relaxant- see orders - Patient given instructions use of medications as ordered, intermittent rest and back care exercise program - METHYLPREDNISOLONE 4 MG TABLETS IN A DOSE PACK - CYCLOBENZAPRINE 10 MG TABLET Report immediately to ER for foot drop, bowel or bladder loss, numbness or tingling of legs/feet or any new or worsening concerns if unable to get into PMD Diagnosis and treatment plan were discussed and questions were answered to the patient's satisfaction. Pt acknowledged understanding of concepts and follow up plan. Specific signs and symptoms that would indicate the need for higher level of care were discussed in detail warranting prompt ER evaluation. Chioma Donovan APRN.[employer] HANDLER [facility] Vital Signs Date Time Vital Sign Value Performing Clinician Facility 06-06-2023 16:19-0400 Body height 165.1 cm [facility] 06-06-2023 16:09-0400 Body mass index (BMI) [Ratio] 26.8 kg/m2 [facility] 06-06-2023 16:09-0400 Body weight 73.14 kg [facility] 06-06-2023 16:09-0400 Diastolic blood pressure 89 mm[Hg] [facility] 06-06-2023 16:09-0400 Heart rate 76 /min [facility] 06-06-2023 16:09-0400 Systolic blood pressure 143 mm[Hg] [facility] 03-28-2022 13:18-0500 Body height 165.1 cm [facility] S[facility] Dozier Work Phone: [facility] 03-28-2022 13:18-0500 Body mass index (BMI) [Ratio] 26.4 kg/m2 [facility] Work Phone: [facility] 03-28-2022 13:18-0500 Body weight 72.12 kg [facility] Sinai Dozire Work Phone: [facility] 03-28-2022 13:18-0500 Diastolic blood pressure 76 mm[Hg] [facility] Do[facility] Work Phone: [facility] 03-28-2022 13:18-0500 Systolic blood pressure 115 mm[Hg] [facility] Do[facility] Work Phone: [facility] 06-03-2021 12:57-0400 Body height 165 cm CHRISTOS MAST MD [facility] 06-03-2021 12:57-0400 Body temperature 98.42 [degF] CHRISTOS MAST MD [facility] 06-03-2021 12:57-0400 Body weight 70 kg CHRISTOS MAST MD [facility] 06-03-2021 12:57-0400 Diastolic blood pressure 88 mm[Hg] CHRISTOS MAST MD [facility] 06-03-2021 12:57-0400 Heart rate 71 /min CHRISTOS MAST MD [facility] 06-03-2021 12:57-0400 Respiratory rate 16 /min CHRISTOS MAST MD [facility] 06-03-2021 12:57-0400 Systolic blood pressure 122 mm[Hg] CHRISTOS MAST MD [facility] Encounters Encounter Date Encounter Type Care Provider Facility Start: 10-03-2024 ambulatory Orlando Cordon lity:[facility] Start: 10-02-2024 [facility] Start: 06-17-2024 End: 06-18-2024 ambulatory Gail Altamirano Facility:[facility] Start: 10-06-2023 End: 10-06-2023 ambulatory MONIKA STACK Facility:B Start: 06-18-2023 End: 06-18-2023 [facility] Work Phone: Start: 06-18-2023 End: 06-18-2023 Patient encounter procedure Beulah Moctezuma [facility] Work Phone: Start: 06-06-2023 End: 06-06-2023 Patient encounter procedure Beulah Moctezuma [facility] Work Phone: Start: 05-22-2022 End: 05-22-2022 ambulatory CNYeison Dozier Work Phone: [facility] Work Phone: Start: 05-22-2022 End: 05-22-2022 Patient encounter procedure CNM [facility] Work Phone: [facility] Start: 03-28-2022 End: 03-28-2022 Patient encounter procedure CNM [facility] Work Phone: [facility] Start: 03-28-2022 End: 03-28-2022 Patient encounter procedure CNYeison Dozier Work Phone: [facility] Start: 06-10-2021 End: 06-10-[address] JAN MORROW DO [facility] Start: 06-03-2021 End: 06-03-2021 Emergency department patient visit CHRISTOS MAST MD [facility] Procedures Date Procedure Procedure Detail Performing Clinician Start: 06-18-2023 Screening mammography Vivian Moctezuma Start: 05-22-2022 Screening mammography C [facility] Work Phone: Start: 04-26-2020 Laparoscopic appendectomy CHRISTOS MAST MD Deliveries by kinga blair (finding) CHRISTOS MAST MD Comment on above: X2 Plan of Treatment Date Care Activity Detail Author Start: 03-28-2022 Patient referral [facility] Work Phone: Patient referral [facility] Work Phone: Immunizations Immunization Date Immunization Notes Care Provider Fa cility 11-06-2020 SARS-CoV-2 (COVID-19 ) [id number] vaccine CHRISTOS MAST MD [facility] Payers Date Payer Category Payer Self-pay [id number] 2023 Unknown [id number] 2004 Unknown [facility] [id number] 1970 Unknown [id number] Unknown [id number] Unknown [id number] Unknown [id number] Social History Date Type Detail Facility Start: 05-27-2020 Tobacco smoking status Never s moked tobacco (finding) [facility] Start: 1970 Sex Assigned At Female [facility] Start: 03-28-2022 End: 06-06-2023 Tobacco smoking status NHIS Unknown if ever smoked [facility] Mental Status Date Assessment Result Facility 06-03-2021 Mental Status [facility] Clinical Note 03-28-2022 Note Date & Type Note Facility 03-28-2022 Note [facility] Pap Smear Specimen Adequacy March 28, 2022 6:11pm Comment . Satisfactory for evaluation. Endocervical and/or squamous metaplasticcells (endocervical component) are present. Comment on above: Satisfactory for josé luis luation. Endocervical and/or squamous metaplasticcells (endocervical component) are present. Evaluation + Plan note 06-10-2021 Radiology Note Date & Type Note Facility 06-10-2021 Evaluation + Plan note Future Scheduled TestsXR Hand Minimum 3 Views Left 06/10/21 [facility] Discharge instructions 06-03-2021 Note Date & Type Note Facility 06-03-2021 Hospital Discharg e instructions Patient Education 06/03/2021 13:37:55 Crush Injury, Hand Crush Injury of the Hand, No Fracture You have a crush injury of your hand. This causes local pain, swelling, and sometimes bruising. You don t have any broken bones. This injury may take from a few days to a few weeks to heal. If a fingernail has been severely injured, it may fall off in 1 to 2 weeks. A new one will usually start to grow back within a month. Home care Follow these guidelines when caring for yourself at home: You may be given a splint to prevent movement of the injured hand. Keep your hand elevated to reduce pain and swelling. When sitting or lying down keep your arm raised above the level of your heart, if possible. You can do this by placing your arm on a pillow that rests on your chest or on a pillow at your side. This is most important during the first 2 days (48 hours) after the injury. Put an ice pack on the injured area. Do this for 20 minutes every 1 to 2 hours the first day for pain relief. You can make an ice pack by wrapping a plastic bag of ice cubes in a thin towel. As the ice melts, be careful that the splint doesn t get wet. Continue to use the ice pack 3 to 4 times a day until the pain and swelling go away. You may use [id number] pain medicine such as acetaminophen or ibuprofen to control pain, unless another pain medicine was prescribed. If you have chronic liver or kidney disease, talk with your healthcare provider before using these medicines. Also talk with your provider if you ve had a stomach ulcer or gastrointestinal bleeding. If you have a splint, keep it dry at all times. Bathe with your splint well out of the water. Protect it with a large plastic bag, rubber-banded at the top end. If a splint gets wet, you can dry it with a hair cutter on the cool setting. Don t stick a needle into the wound to drain it. Bruised skin may change colors over time. It may change from reddish to bluish to yellowish before the skin goes back to normal coloring. Follow-up care Follow up with your healthcare provider, or as advised, if you don t start to get better within the next 3 days. If X-rays were taken, you will be told of any new findings that may affect your care. When to seek medical advice Call your healthcare provider right away if any of these occur: The plaster splint becomes wet or soft The plaster splint stays wet for more than 24 hours Tightness or pain under the splint gets worse Fingers become swollen, cold, blue, numb, or tingly Redness, warmth, swelling, drainage from the wound, or foul odor from a splint You can t move your fingers Fever of 100.4 F (38 C) or higher, or as directed by your healthcare provider [phone] [employer]. [address] [place] [address]. All rights reserved. This information is not intended as a substitute for professional medical care. Always follow your healthcare professional's instructions. Follow Up Care 06/03/2021 12:45:50 With:MONIKA MOCTEZUMA APRN-[employer]S HANDLER Address: When:3-5 days Comments:Wound re-check, then sutures X3 out in 7 days. [facility] Evaluation + Plan note Note Date & Type Note Facility Evaluation + Plan note No data available for this section [facility] Evaluation note Note Date & Type Note Facility Evaluation note No assessment information availa [facility] Work Phone: Hospital Discharge instructions Note Date & Type Note Facility Hospital Discharge instructions No data available for this section [facility] Progress note Note Date & Type Note Facility Progress note No data available for this section [facility] Summary Purpose Family History No Family History Records Found Relationship Condition Age at Onset Recorded Date/T peyman Not Specified Malignant neoplasm of ovary Unknown Diabetes mellitus Unknown Cardiac disease Unknown Relationship Condition Age at Onset Recorded Date/T peyman father Diabetes mellitus Unknown Cardiac disease Unknown mother Cardiac disease Unknown grandmother Malignant neoplasm of ovary Unknown Advance Directives No Advanced Directives Records FoundNo Advanced Directives Records FoundNo Advanced Directives Records Found Chief Complaint and Reason for Visit Chief Complaint Annual (LEAD PRINTER) SCREENING SCREENING Chief Complaint Annual (LEAD PRINTER) SCREENING Additional Source Comments INFORMATION SOURCE (unrecogn ized section and content) DATE CREATED AUTHOR 08/24/2018 [facility] DATE CREATED AUTHOR AUTHOR'S ORGANIZ ATION 10/08/2023 [facility] DATE CREATED AUTHOR AUTHOR'S ORGANIZ ATION 10/02/2024 [facility] Care Team (unrecognized sect ion and content) Team Status: Active Member Role Status Dates Beulah Moctezuma Primary Care Provider Active Team Status: Inactive Member Role Status Dates [facility] CNM Attending Provider Active Team Status: Inactive Member Role Status Dates [facility] Do[facility] CNM Attending Provider Active Beulah Moctezuma Primary Care Provider Active Team Status: Inactive Member Role Status Dates Beulah Moctezuma Primary Care Provider, Referring Provide r Active [facility] Do[facility] CNM Attending Provider Active Team Status: Inactive Member Role Status Dates Beulah Moctezuma Primary Care Provider Active [facility] CNM Attending Provider, Referring Pr ovider Active Goals (unrecognized section and content) Goals may be documented in a n alternate section FOR RECORDS PERTAINING TO PATIENTS WHO ARE OR HAVE BEEN ENROLLED IN A CHEMICAL DEPENDENCY/SUBSTANCEABUSE PROGRAM, SOME INFORMATION MAY BE OMITTED. This clinical summary was aggregated from multiple sources. Caution should be exercised in using it in the provision of clinical care. This summary normalizes information from multiple sources, and as a consequence, information in this document may materially change the coding, format and clinical context of patient data. In addition, data may be omitted in some cases. CLINICAL DECISIONS SHOULD BE BASED ON THE PRIMARY CLINICAL RECORDS. [facility] [employer] [facility]. provides no warranty or guarantee of the accuracy or completeness of information in this document.
[2024-10-03] MEDS: Lactated Ringers 1,000 ML 15 ML IV (09:14)
--- NOTE | 2024-10-03 09:14 | HP.PCM_ITS ---
HPI - General HPI Narrative MARY MAI, is a 54 F who presents for screening colonoscopy. Patient has never had a colonoscopy in the past. She denies abdominal pain or blood in the stool. She has no family history of colon cancer. [facility] Medical History Wears glasses Anxiety Restless legs Migraine headache Non-smoker Home Medications ?Medication ?Instructions ?Recorded ?Last Taken ?Type citalopram 10 mg tablet 10 mg PO DAILY 03/28/2209/19 History Allergy/AdvReac Type Severity Reaction Status Date / Time No Known Allergies Allergy Verified 10/03/24 08:56 Family History Father Diabetes Heart disease Mother Heart disease Grandmother Ovarian cancer Paternal Surgical History Hx of appendectomy History of delivery Social History adopted: No household members: spouse and children number of children: 1 current occupational status: employed current occupation: [employer] current occupational exposures/hazards: No pets and animals: Yes pets and animals: cat(s) and dog(s) history of recent travel: No sexually active: Yes Smoking Status: Never smoker alcohol intake: never substance use type: does not use well-balanced diet: daily or most days caffeine: Yes Type: coffee Number of servings: 2 during the past year weight has: remained stable what type of physical activity do you participate in: walking frequency: daily duration: 45-60 minutes/day simi/hoahaoism: None seatbelt use: always do you feel safe at home: Yes additional social history: Bhavin Past Medical/Surgical History Planned Operation Planned Operative Procedure(s): CSCOPE OA Previous Hospitalizations/Surgeries HX Hospitalizations: No Any Problems With Anesthesia: No You/Your Family Experience Fever (Hyperthermia) With Anes: No Cholinesterase deficiency: No Cardiovascular Hx Hypertension: No Respiratory Hx Asthma: No Hx Emphysema: No Hx Sleep Apnea: No Hx Respiratory Tract Infection/Cold (presently): No Do You Snore Loudly (louder than talking or can be heard): No Do You Often Feel Tired/ Fatigued/ Sleepy Dring Daytime?: No Has Anyone Observed You Stop Breathing During Sleep?: No Result (for STOP score): Negative Smoking Status: Never smoker Neurological Hx Seizures: No Does patient have nerve stimulator: No Reproduction : No Miscellaneous Recent Exposure to Contagious Disease: No Allergies No Known Allergies Allergy (Verified 10/03/24 08:56) Discharge Is Pt Admitted From a Long Term, or a Fdc: No After D/C, Where Do you Plan to Go: Return Home Vital Signs Vital Signs Vital Signs: 10/03/24 08:53 10/03/24 08:53 10/03/24 08:56 Temperature 97.6 F L Temperature Source Temporal Pulse Rate 75 Respiratory Rate 18 Respiratory Pattern Normal Blood Pressure 123/85 H Blood Pressure Mean 97 Blood Pressure Source Monitor Blood Pressure Position Semi-Fowlers Blood Pressure Location Right Arm Pulse Ox 100 Oxygen Delivery Method Room Air Room Air Weight Weight: 160 lb 14.999 oz Body Mass Index (BMI) 26.7 Physical Exam Const alert and oriented x3 HEENT normocephalic Eyes PERRL Resp normal respiratory effort and normal air movement Cardio regular rate and regular rhythm GI soft to palpation, non-tender and non-distended Extremity normal to inspection Assessment & Plan Assessment/Plan (1) Screen for colon cancer: PLAN: I explained endoscopy in detail to the patient. I explained the risks including but not limited to stroke or heart attack with anesthesia, perforation of the GI tract, bleeding, infection. I explained that any of these could necessitate further emergency surgery. The patient understands and all questions were answered sufficiently. The patient wishes to proceed with procedure. Orlando Zimmerman MD Pager: [facility] [address] [place] [address], [address] [place] [address] Office: Surgery Risks - Colonoscopy Risks Include but are not Limited To: Risks include but are not limited to: Bleeding, perforation requiring further surgery, inability to complete colonoscopy requiring barium enema.
[2024-10-03] MEDS: Lactated Ringers 500 ML IV (09:26)
[2024-10-03] MEDS: Lidocaine 1% (5 ml sdv) 5 ML Vial 10 ML IV (09:26)
--- NOTE | 2024-10-03 09:30 | COLBX_PTH ---
PATIENT: MARY MAI LOC: EN U#:[id number] AGE/SX: 54/F ROOM: RE10/03/[address]: Dr. Orlando Zimmerman MD : 1970 BED: DIS: 10/03/2024 SPEC #: [id number] RECD: 10/03/24 11:43 STATUS: GIANLUCA VELAZQUEZ #: [id number] LEAH: 10/03/24 09:[address]: Orlando Zimmerman DEPT: SURGICAL PATHOLOGY RECD BY: Bharath Maurer ENTERED: 10/03/24 14:06 SP TYPE: COLON BX OTHR DR: Monika Brumfield, AUTOMOBI[employer] LEASING SUPERVISOR-C Tissues: A - Rectum, NOS Procedures: Surgery Specimen Level IV HEADER OPERATION: Colonoscopy, rectal pracemael polypectomy PRE-OP DIAGNOSIS: Screening TISSUE SUBMITTED: A- Rectal polyp biopsy MICROSCOPIC DIAGNOSIS A. Rectum, polyp, biopsy: - Tubulovillous adenoma with HIGH GRADE DYSPLASIA, multiple fragments. MICROSCOPIC DESCRIPTION Slides are reviewed. GROSS DESCRIPTION A. Received in fixative is one container labeled with the patient's name and designated Rectal polyp biopsy. The specimen consists of Is a 0.4 cm gustafson soft tissue fragment and 2 pink-red irregular polypoid tissue fragments as follows:. Polypoid fragment #1: 1.1 x 0.8 x 0.6 cm, inked green, trisectedPolypoid fragment #2, 1.2 x 0.9 x 0.6 cm, inked orange, serially sectioned Entirely submitted in 2 cassettes as follows: A1: Tissue fragment and polypoid fragment #1A2: Polypoid fragment #2 RI 10/03/2024 CPT:77565
--- NOTE | 2024-10-03 09:54 | OP.COLON_ITS ---
Patient Name: Mine Fishman Procedure Date: 10/03/2024 9:16 AM Date of : 1970 Age: 54 Procedure: Colonoscopy Indications: Screening for colorectal malignant neoplasm Providers: Orlando Zimmerman MD Referring MD: Orlando Zimmerman MD Medicines: Propofol per Anesthesia Patient Profile: This is a 54 year old female. Refer to note in patient chart for documentation of history and physical. Last Colonoscopy: none. The patient's first colonoscopy is today. Complications: No immediate complications. Estimated blood loss: Minimal. Procedure: Pre-Anesthesia Assessment: - Prior to the procedure, a History and Physical was performed, and patient medications and allergies were reviewed. The patient's tolerance of previous anesthesia was also reviewed. The risks and benefits of the procedure and the sedation options and risks were discussed with the patient. All questions were answered, and informed consent was obtained. Prior Anticoagulants: The patient has taken no anticoagulant or antiplatelet agents. After reviewing the risks and benefits, the patient was deemed in satisfactory condition to undergo the procedure. After I obtained informed consent, the scope was passed under direct vision. Throughout the procedure, the patient's blood pressure, pulse, and oxygen saturations were monitored continuously. The Colonoscope was introduced through the anus and advanced to the cecum, identified by appendiceal orifice and ileocecal valve. The colonoscopy was performed without difficulty. The patient tolerated the procedure well. The quality of the bowel preparation was good. The ileocecal valve, appendiceal orifice, and rectum were photographed. Scope In: 9:26:24 AM Scope Withdrawal Time 0 hours 14 minutes 20 seconds Scope Out: 9:47:59 AM Total Procedure Duration Time 0 hours 21 minutes 35 seconds Findings: A large polyp was found in the recto-sigmoid colon. The polyp was sessile. Area was tattooed with an injection of Beata ink. The polyp was removed with a saline injection-lift technique using a hot snare. Resection and retrieval were complete. To close a defect after polypectomy, one hemostatic clip was successfully placed. There was no bleeding at the end of the procedure. The exam was otherwise without abnormality on direct and retroflexion views. Impression: - One large polyp at the recto-sigmoid colon, removed using injection-lift and a hot snare. Resected and retrieved. Tattooed. Clip was placed. - The examination was otherwise normal on direct and retroflexion views. Recommendation: - Discharge patient to home. - Resume previous diet. - Continue present medications. - Await pathology results. - Repeat colonoscopy in 1 year for surveillance after piecemeal polypectomy. Procedure Code(s): --- Professional --- 49514, Colonoscopy, flexible; with removal of tumor(s), polyp(s), or other lesion(s) by snare technique 16132, Colonoscopy, flexible; with directed submucosal injection(s), any substance Diagnosis Code(s): --- Professional --- Z12.11, Encounter for screening for malignant neoplasm of colon D12.7, Benign neoplasm of rectosigmoid junction CPT copyright 2021 [employer]. All rights reserved. The codes documented in this report are preliminary and upon human resources team member review may be revised to meet current compliance requirements. Orlando Zimmerman MD 10/03/2024 9:53:39 AM This report has been signed electronically. Number of Addenda: 0 Note Initiated On: 10/03/2024 9:16 AM
--- NOTE | 2024-10-03 09:54 | OP.PROVAT_ITS ---
10/03/2024 Monika Brumfield Re : Colonoscopy procedure for Mine Barron Carolalfie This procedure was performed on Thursday, October 03, 2024. My impressions and recommendations are as follows: Impressions : - One large polyp at the recto-sigmoid colon, removed using injection-lift and a hot snare. Resected and retrieved. Tattooed. Clip was placed. - The examination was otherwise normal on direct and retroflexion views. Recommendations : - Discharge patient to home. - Resume previous diet. - Continue present medications. - Await pathology results. - Repeat colonoscopy in 1 year for surveillance after piecemeal polypectomy. My findings are described in the full procedure note, which is enclosed. If I can be of further assistance, please feel free to contact me at Doctor phone number(s): , Work: . Sincerely, Orlando Zimmerman MD 10/03/2024 9:53:39 AM This report has been signed electronically.
--- NOTE | 2024-10-03 09:57 | PCM.POST.ANE ---
Anesthesia: Postop Eval I Current Vital Signs Temperature: 97.5 F Pulse Rate: 68 Blood Pressure: 100/65 Respiratory Rate: 18 Pulse Ox: 98 Oxygen Delivery Method: Room Air Assessment Airway patent: Yes Spontaneous unlabored respirations: Yes Mental status: Asleep nausea: No Vomiting: No Anesthesia Complication: No Fluid Hydration Crystalloid volume administer (ml): 500 Total IV fluid infused: 500 Progress Note Anesthesia document: Postop Eval 1 completed: Yes
--- NOTE | 2024-10-03 10:24 | POSTOPAN2_ITS ---
Anesthesia Postop Eval I Sum Postop Eval Completion status Anesthesia document: Postop Eval 1 completed: Yes Anesthesia Postop Eval I Summary Anesthesia Postop Eval I Summary: Anesthesia Postop Eval I: Assessment Summary Airway patent Yes 10/03/24 09:57 SURVEILLANCE SENSOR OPERATOR.[email or web address] Spontaneous unlabored Yes 10/03/24 09:57 SURVEILLANCE SENSOR OPERATOR.JBOR respirations Mental status Asleep 10/03/24 09:57 SURVEILLANCE SENSOR OPERATOR.JBOR nausea No 10/03/24 09:57 SURVEILLANCE SENSOR OPERATOR.JBOR Vomiting No 10/03/24 09:57 SURVEILLANCE SENSOR OPERATOR.JBOR Anesthesia Postop Eval I: Fluid Summary Crystalloid volume administer 500 10/03/24 09:57 SURVEILLANCE SENSOR OPERATOR.JBOR (ml) Colloids volume administered ( ml) Blood Product volume administered (ml) Total IV fluid infused 500 10/03/24 09:57 SURVEILLANCE SENSOR OPERATOR.JBOR Anesthesia Postop Eval I: Summary Notes Anesthesia Complication No 10/03/24 09:57 SURVEILLANCE SENSOR OPERATOR.JBOR Anesthesia Complication Comment: Post-operative progress note Anesthesia: Postop Eval II Evaluation Mental status: Awake and Calm Pain Level: 0 nausea: No Vomiting: No Progress Note Post-operative progress note: meets discharge criteria Complications Anesthesia Complication: No
--- NOTE | 2024-10-03 10:24 | PCM.POSTANE2 ---
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 SOCIETY DIRECTOR.[email or web address] Spontaneous unlabored Yes 10/03/24 09:57 STATE HISTORICAL SOCIETY DIRECTOR.JBOR respirations Mental status Asleep 10/03/24 09:57 STATE HISTORICAL SOCIETY DIRECTOR.JBOR nausea No 10/03/24 09:57 STATE HISTORICAL SOCIETY DIRECTOR.JBOR Vomiting No 10/03/24 09:57 STATE HISTORICAL SOCIETY DIRECTOR.JBOR Anesthesia Postop Eval I: Fluid Summary Crystalloid volume administer 500 10/03/24 09:57 STATE HISTORICAL SOCIETY DIRECTOR.JBOR (ml) Colloids volume administered ( ml) Blood Product volume administered (ml) Total IV fluid infused 500 10/03/24 09:57 STATE HISTORICAL SOCIETY DIRECTOR.JBOR Anesthesia Postop Eval I: Summary Notes Anesthesia Complication No 10/03/24 09:57 STATE HISTORICAL SOCIETY DIRECTOR.JBOR Anesthesia Complication Comment: Post-operative progress note Anesthesia: Postop Eval II Evaluation Mental status: Awake and Calm Pain Level: 0 nausea: No Vomiting: No Progress Note Post-operative progress note: meets discharge criteria Complications Anesthesia Complication: No
== END 2024-10-03 10:46 | disposition home or self-care (01) ==
LOC: EN 08:32 → AC 08:33
PROVIDERS: Anesthesiology; PCP Nurse Practitioner Family; Referring Provider Surgery; Visit Provider Surgery
PROC: 0DJD8ZZ Inspection of Lower Intestinal Tract, Via Natural or Artificial Opening Endoscopic (ICD-10-PCS; CPT 45378; principal; 2024-10-03 09:25)
DX: Z12.11 Encounter for screening for malignant neoplasm of colon (principal); Z79.899 Other long term (current) drug therapy; D12.8 Benign neoplasm of rectum; K62.82 Dysplasia of anus
CPT/HCPCS: 45385; 45381; 81025; 88305; A4648